=== PATIENT | female | born 1980 | race African-American/Black ===

== ENCOUNTER 2021-11-30 09:43 | Emergency (ER) | payer OTHER, BC ==
[~2021-11-30] VITALS: Ht 165.1 cm; Wt 85.0 kg
[2021-11-30 10:20] VITALS: BP 146/95; TEMP 98.6
[2021-11-30 12:17] VITALS: PULSE 69
== END 2021-11-30 12:17 | disposition home or self-care (01) ==
LOC: COL.ER 09:43
DX: R10.31 Right lower quadrant pain (principal); V43.52XA Car driver injured in collision with other type car in traffic accident, initial encounter; Y92.410 Unspecified street and highway as the place of occurrence of the external cause